=== PATIENT | female | born 1990 | race American Indian/Alaskan Native ===

== ENCOUNTER 2020-08-07 11:54 | Emergency (ER) | payer SELFPAY ==
[2020-08-07 12:10] VITALS: BP 126/66
[2020-08-07] MEDS ORDERED: ACETAMINOPHEN 500 MG TAB PO ONE (13:45)
--- NOTE | 2020-08-07 13:49 | Event Note ---
ED Screening Note Date of service: 08/07/20 Time: 13:44 ED Screening Note: 29-year-old female patient presents to emergency department complaints of fever, chills, myalgias, and abdominal cramps starting yesterday. Patient states symptoms began after receiving her second COVID-19 vaccination. No known sick contacts. No current steroid or antibiotic use. States she is currently on her menstrual cycle. Fever and tachycardia noted in triage. Tylenol ordered. Lactic acid ordered. Decision to pursue further sepsis work-up deferred to additional ED providers. General: Awake, appropriately interactive, no acute distress. Neck: Supple. Full range of motion intact. Cardiovascular: Tachycardic normal peripheral perfusion. Pulmonary: Lungs clear to auscultation. No respiratory distress. Patient is speaking normally without use of accessory muscles. Skin: No apparent rashes or lesions. Neurological: No facial asymmetry. Speech is clear. Follows commands. Patient is alert and oriented. Musculoskeletal: Moves all four extremities spontaneously with normal range of motion. Psych: Cooperative. Appropriate mood and affect. I have greeted and performed a focused rapid initial assessment of this patient. A comprehensive ED assessment and evaluation of the patient, analysis of all test results, and completion of the medical decision-making process will be conducted by additional ED providers. This initial assessment/diagnostic orders/clinical plan/treatment(s) is/are subject to change based on patients health status, clinical progression and re-assessment. Further treatment and workup at subsequent clinical provider's discretion. Patient/guardian urged not to elope from the ED as their condition may be serious if not clinically assessed and managed.
[2020-08-07 14:18] LABS: Bacteria,Urine 1+ /HPF (Negative); Bilirubin,Urine NEG (Negative); Blood,Urine LG (Negative); Color,Urine Yellow (Yellow); Mucus,Urine FEW /HPF; Urobilinogen,Urine < 2.0 mg/dL (<2.0)
[2020-08-07 14:27] LABS: Basophils % (Auto) 0.2 % (0.0-1.8); Eosinophils % (Auto) 0.3 % (0.0-4.3); Hematocrit 42.3 % (30.3-42.9); Hemoglobin 14.3 gm/dl (10.1-14.3); Lymphocytes # (Auto) 0.5 K/mm3 (1.2-5.4); Lymphocytes % (Auto) 6.1 % (13.4-35.0); Mean Corpuscular HGB Conc 34 % (30-34); Mean Corpuscular Volume 97 fl (79-97); Monocytes # (Auto) 0.3 K/mm3 (0.0-0.8); Monocytes % (Auto) 3.6 % (0.0-7.3); Platelet Count 199 K/mm3 (140-440); Red Blood Count 4.37 M/mm3 (3.65-5.03); Red Cell Distribution Width 14.8 % (13.2-15.2)
[2020-08-07 15:29] LABS: Alanine Aminotransferase 9 units/L (7-56); Albumin 4.1 g/dL (3.9-5); BUN/Creatinine Ratio 6; Blood Urea Nitrogen 6 mg/dL (7-17); Calcium 9.5 mg/dL (8.4-10.2); Hemolysis Index 4
[2020-08-07] MEDS ORDERED: SODIUM CHLORIDE 0.9% 1000 ML 1,000 ML IV ONE (16:09)
[2020-08-07] MEDS ORDERED: ACETAMINOPHEN 500 MG TAB ONE (16:10)
--- NOTE | 2020-08-07 16:14 | Emergency Department Report ---
ED General Adult HPI - General Chief complaint: Fever Stated complaint: 2ND COVID VAC COMPLICATIONS Time Seen by Provider: 08/07/20 16:12 Source: patient Mode of arrival: Ambulatory Limitations: No Limitations - History of Present Illness Initial comments: 29-year-old female patient presents to emergency department complaints of fever, chills, myalgias, and abdominal cramps starting yesterday. Patient states symptoms began after receiving her second COVID-19 vaccination. No known sick contacts. No current steroid or antibiotic use. States she is currently on her menstrual cycle. No medications prior to arrival. Denies headache, neck stiffness, rash, shortness of breath, cough, vomiting, diarrhea, abnormal vaginal bleeding, vaginal discharge. Denies all other complaints at this time. Severity scale (0 -10): 9 - Related Data Allergies Allergy/AdvReac Type Severity Reaction Status Date / Time ziprasidone [From Myra] Allergy Unknown Verified 08/07/20 16:16 ED Review of Systems ROS: Stated complaint: 2ND COVID VAC COMPLICATIONS Other details as noted in HPI Other: GENERAL: Positive for subjective fever and chills ENT: Negative for ear pain, difficulty hearing, sore throat, nasal congestion, e pistaxis. CARDIOVASCULAR: Negative for chest pain, palpitations, lower extremity swelling. PULMONARY: Negative for cough, dyspnea, wheezing, orthopnea, cyanosis. GASTROINTESTINAL: Positive for abdominal cramps. MUSCULOSKELETAL: Positive for myalgias. NEUROLOGICAL: Negative for headache, seizure, syncope, paresthesias, weakness. INTEGUMENTARY: Negative for erythema, rash, diaphoresis, laceration, ecchymosis. HEMATOLOGICAL: Negative for hemoptysis, hematemesis, hematochezia, hematuria. PSYCHIATRIC: Negative for hallucinations, suicidal ideation, homicidal ideation, anxiety, depression. ED Past Medical Hx - Past Medical History Previous Medical History?: Yes - Surgical History Additional Surgical History: "aortic ring" ED Physical Exam - General Limitations: No Limitations - Other Other exam information: General: Awake and alert. No acute distress. Head: Atraumatic, normocephalic. Eyes: EOMI. Pupils are equal and round. Normal sclera and conjunctiva. ENT: Oral mucosa is moist. Normal pharyngeal exam. Neck: Supple. No lymphadenopathy. Pulmonary: No respiratory distress. Clear to auscultation bilaterally. Cardiac: Tachycardic. Pulses are palpable and equal bilaterally. No lower extremity cyanosis or edema. Skin: Warm and dry. No rashes. Abdomen: Soft, non-tender, non-protuberant. No guarding, rigidity, or rebound. Bowel sounds are normal. No organomegaly or masses noted. Back: Normal alignment. No CVA tenderness. Extremities: Symmetrical. Full range of motion intact. Neurological: Alert and oriented, appropriately interactive, no focal deficits. Psych: Cooperative. Appropriate mood and affect. Speech is evenly metered. Thoughts are logically construed. ED Course Vital Signs 08/07/20 08/07/20 12:06 17:17 Temperature 100.9 F H Pulse Rate 113 H Respiratory 18 18 Rate Blood Pressure 126/66 [Right] O2 Sat by Pulse 96 Oximetry ED Medical Decision Making - Lab Data Result diagrams: 08/07/20 14:06 08/07/20 14:06 - Medical Decision Making Differential diagnosis including but not limited to: dehydration, electrolyte abnormality, anemia, hypoglycemia, new onset diabetes, rhabdomyolysis, pyelonephritis, urinary tract infection, , sepsis, toxic ingestion, adverse medication effect On reevaluation, patient is stable and symptoms have improved significantly after Tylenol and IV fluids. Tachycardia resolved; repeat heart rate 96 bpm. She is sitting upright and asking for drinks/snacks. test is negative. Patient volunteered that she takes both Depakote and Independence; these levels were tested and found to be within therapeutic ranges labs consistent with mild dehydration; replenished orally and with IV fluids. Patient was febrile and tachycardic on arrival with normal white blood cell count; no clinical evidence to suggest systemic bacterial infection warranting further diagnostic work-up on an emergent basis. Symptoms likely attributable to receiving COVID-19 vaccination less than 24 hours earlier. Patient will be discharged home with instructions for supportive care. Patient expressed understanding and is agreeable to plan of care. Strict return precautions provided. Repeat exam is unremarkable and benign. History, exam, diagnostic testing, and current condition do not suggest worrisome pathology to warrant further testing, continued ED treatment, admission, or surgical evaluation at this point. Given the low probability of a significant medical illness, it would be more likely to result in harm than benefit to perform further testing at this stage. Discussed findings, presumptive diagnosis, need for follow-up and specific signs/symptoms that should prompt immediate return to the emergency department. Instructions were explained in detail to the patient in addition to giving written discharge information. Patient expressed understanding and was given the opportunity to ask questions, all of which were satisfactorily answered prior to discharge home. Critical care attestation.: If time is entered above; I have spent that time in minutes in the direct care of this critically ill patient, excluding procedure time. ED Disposition Clinical Impression: Mild dehydration Disposition: DC-01 TO HOME OR SELFCARE Is pt being admited?: No Does the pt Need Aspirin: No Condition: Stable Instructions: Dehydration, Adult, [id number] Additional Instructions: Take Tylenol every 4 hours and Motrin every 8 hours as needed for pain/fever. Rest. Drink plenty of fluids. Follow-up with your primary care provider this week. Call tomorrow to schedule an appointment. Return to the emergency department immediately for new or worsening symptoms. Referrals: PETRONA AQUINO MD [Staff Physician] - 3-5 Days Time of Disposition: 18:28
== END 2020-08-07 19:00 | disposition home or self-care (01) ==
LOC: ED 11:54
DX: E86.0 Dehydration (principal); Z88.8 Allergy status to other drugs, medicaments and biological substances
CPT/HCPCS: 36415; 80053; 80164; 80178; 81001; 82140; 82550; 83690; 83735; 84703; 85025; 87086; 96360; 96361; 99283; J7030

== ENCOUNTER 2020-09-19 09:30 | Outpatient (CLI) | payer OTHER ==
--- NOTE | 2020-09-19 15:34 | XRay Report ---
CHEST PA AND LATERAL VIEWS INDICATION: UNSPECIFIED,ASTHMA. COMPARISON: None. FINDINGS: Support devices: None. Heart: Within normal limits. Lungs/Pleura: No acute pulmonary or pleural findings. IMPRESSION: 1. No acute findings. Signer Name: Souleymane Gardner MD Signed: 09/19/2020 3:30 PM Workstation Name: [id number]
== END 2020-09-19 09:31 | disposition home or self-care (01) ==
LOC: XRAY 09:30
PROVIDERS: ATTEND Internal Medicine
DX: J45.909 Unspecified asthma, uncomplicated (principal)
CPT/HCPCS: 71046

== ENCOUNTER 2020-11-05 23:48 | Emergency (ER) | payer SELFPAY ==
[2020-11-06 03:54] VITALS: BP 131/82
--- NOTE | 2020-11-06 04:29 | Emergency Department Report ---
ED General Adult HPI - General Chief complaint: Dental/Oral Stated complaint: INFECTION TO MOUTH Source: patient Mode of arrival: Ambulatory Limitations: No Limitations - History of Present Illness Initial comments: Patient is a 29-year-old -Citizen Of [place] female with a history of anxiety and depression as well as bipolar disorder who presents to the ED with complaint of acute onset persistent severe right maxillary premolar molar toothache with swollen painful gingiva for the last 2 days. Patient states that she tried to take [id number] medications for pain Tylenol with no relief. Patient denies dizziness, syncope, headache, chest pain, shortness of breath, traumatic injury, nosebleed, sore throat, fever and chills or nausea and vomiting. MD Complaint: right maxillary gingival swelling; dental abscess -: Sudden, days(s) (2) Location: mouth Radiation: non-radiation Severity scale (0 -10): 7 Quality: aching, sharp Consistency: constant Improves with: none Worsens with: none Associated Symptoms: denies other symptoms. denies: confusion, chest pain, cough, diaphoresis, fever/chills, headaches, loss of appetite, malaise, nausea/vomiting, shortness of breath, syncope, other Treatments Prior to Arrival: none - Related Data Previous Rx's Medication Instructions Recorded Last Taken Type Clindamycin [Clindamycin CAP] 300 mg PO Q8HR #60 capsule 11/06/20 Unknown Rx Diclofenac Sodium 75 mg PO Q8H PRN #30 tablet. 11/06/20 Unknown Rx Allergies Allergy/AdvReac Type Severity Reaction Status Date / Time ziprasidone [From Geodon] Allergy Unknown Verified 08/07/20 16:16 ED Review of Systems ROS: Stated complaint: INFECTION TO MOUTH Other details as noted in HPI Constitutional: denies: chills, fever, malaise Eyes: denies: eye pain, eye discharge, vision change ENT: throat pain (swollen painful right maxillary gingiva and premolar and molar toothache), dental pain (right maxillary gingival pain and swelling). denies: ear pain, hearing loss, congestion Respiratory: denies: cough, shortness of breath, wheezing Cardiovascular: denies: chest pain, palpitations Endocrine: no symptoms reported Gastrointestinal: denies: abdominal pain, nausea, diarrhea Genitourinary: denies: urgency, dysuria, discharge Musculoskeletal: denies: back pain, joint swelling, arthralgia Skin: denies: rash, lesions Neurological: denies: headache, weakness, paresthesias Psychiatric: anxiety. denies: depression Hematological/Lymphatic: denies: easy bleeding, easy bruising ED Past Medical Hx - Surgical History Additional Surgical History: "aortic ring" - Medications Home Medications: Home Medications Medication Instructions Recorded Confirmed Last Taken Type Clindamycin [Clindamycin CAP] 300 mg PO Q8HR #60 capsule 11/06/20 Unknown Rx Diclofenac Sodium 75 mg PO Q8H PRN #30 tablet. 11/06/20 Unknown Rx ED Physical Exam - General Limitations: No Limitations General appearance: alert, in no apparent distress - Head Head exam: Present: atraumatic, normocephalic, normal inspection - Eye Eye exam: Present: normal appearance, PERRL, EOMI Pupils: Present: normal accommodation - ENT ENT exam: Present: mucous membranes moist, TM's normal bilaterally, normal external ear exam, other (Swollen, severely tender right maxillary gingiva with severely tender right maxillary premolar and molar teeth) - Neck Neck exam: Present: normal inspection, full ROM. Absent: lymphadenopathy - Respiratory Respiratory exam: Present: normal lung sounds bilaterally. Absent: respiratory distress, wheezes, rales, stridor, chest wall tenderness, accessory muscle use, prolonged expiratory, other - Cardiovascular Cardiovascular Exam: Present: regular rate, normal rhythm, normal heart sounds. Absent: systolic murmur, diastolic murmur, rubs, gallop - GI/Abdominal GI/Abdominal exam: Present: soft, normal bowel sounds. Absent: tenderness, guarding, rebound, hyperactive bowel sounds, hypoactive bowel sounds, organomegaly - Extremities Exam Extremities exam: Present: normal inspection, full ROM, normal capillary refill - Back Exam Back exam: Present: normal inspection, full ROM. Absent: tenderness, CVA tenderness (R), CVA tenderness (L), muscle spasm, paraspinal tenderness - Neurological Exam Neurological exam: Present: alert, oriented X3, CN II-XII intact, normal gait, reflexes normal - Psychiatric Psychiatric exam: Present: normal affect, normal mood - Skin Skin exam: Present: warm, dry, intact, normal color. Absent: rash ED Course Vital Signs 11/06/20 03:52 Temperature 98.7 F Pulse Rate 68 Respiratory 18 Rate Blood Pressure 131/82 O2 Sat by Pulse 97 Oximetry ED Medical Decision Making - Medical Decision Making This is a 29-year-old -Citizen Of [place] female with a history of anxiety and depression as well as bipolar disorder who presents to the ED with complaint of acute onset persistent severe right maxillary premolar molar toothache with swollen painful gingiva for the last 2 days. Patient states that she tried to take [id number] medications for pain Tylenol with no relief. In the ED, patient is alert and oriented x3 and is not in distress. Patient was discharged home on pain medications and antibiotics and advised to follow-up with her dentist in 7 to 10 days for reevaluation. Patient is advised return to the ED immediately if symptoms get worse. - Differential Diagnosis Dental abscess; gingivitis; dental caries; Critical care attestation.: If time is entered above; I have spent that time in minutes in the direct care of this critically ill patient, excluding procedure time. ED Disposition Clinical Impression: Dental abscess, Acute gingivitis, Dental caries Disposition: TO HOME OR SELFCARE Is pt being admited?: No Does the pt Need Aspirin: No Condition: Stable Instructions: Dental Abscess, [id number], Trench Mouth Additional Instructions: Take medication with food, drink plenty of fluids and follow-up with your dentist in 7 to 10 days for reevaluation. Return to the ED immediately if symptoms get worse. Prescriptions: Clindamycin [Clindamycin CAP] 300 mg PO Q8HR #60 capsule Diclofenac Sodium 75 mg PO Q8H PRN #30 tablet.dr RUELAS Reason: Pain , Severe (7-10) Referrals: [facility] [Outside] - 3-5 Days Forms: Work/School Release Form(ED) Time of Disposition: 04:29 Print Language: DANISH
== END 2020-11-06 05:30 | disposition home or self-care (01) ==
LOC: ED 23:48
DX: K04.7 Periapical abscess without sinus (principal); K05.00 Acute gingivitis, plaque induced; K02.9 Dental caries, unspecified; F31.9 Bipolar disorder, unspecified; Z88.8 Allergy status to other drugs, medicaments and biological substances; Z79.899 Other long term (current) drug therapy
CPT/HCPCS: 99282

== ENCOUNTER 2020-12-12 01:25 | Emergency (ER) | payer SELFPAY ==
[2020-12-12 02:27] VITALS: BP 125/79
[2020-12-12 03:12] LABS: Hematocrit 41.6 % (30.3-42.9); Hemoglobin 14.1 gm/dl (10.1-14.3); Mean Corpuscular HGB Conc 34 % (30-34); Mean Corpuscular Volume 96 fl (79-97); Platelet Count 161 K/mm3 (140-440); Red Blood Count 4.32 M/mm3 (3.65-5.03); Red Cell Distribution Width 14.1 % (13.2-15.2)
[2020-12-12 03:13] LABS: Bilirubin,Urine NEG (Negative); Blood,Urine NEG (Negative); Color,Urine Straw (Yellow); Protein,Urine <15 mg/dL mg/dL (Negative); Urobilinogen,Urine < 2.0 mg/dL (<2.0)
[2020-12-12 03:32] LABS: Alanine Aminotransferase 20 units/L (7-56); Albumin 4.4 g/dL (3.9-5); BUN/Creatinine Ratio 7; Blood Urea Nitrogen 7 mg/dL (7-17); Calcium 9.6 mg/dL (8.4-10.2); Hemolysis Index 13
[2020-12-12] MEDS ORDERED: ONDANSETRON 4 MG/2 ML INJ IV ONE (03:32)
[2020-12-12] MEDS ORDERED: DICYCLOMINE 20 MG/2 ML INJ IM ONE (03:32)
[2020-12-12] MEDS ORDERED: FAMOTIDINE 20 MG/2 ML INJ IV ONE (03:33)
[2020-12-12 04:00] LABS: Total Cells Counted 100
[2020-12-12 04:01] LABS: Giant Platelets Rare; RBC Morphology Normal
--- NOTE | 2020-12-12 04:51 | Cat Scan Report ---
CT ABDOMEN AND PELVIS WITH IV CONTRAST INDICATION: Pt complains oF abdominal pain with N/V/D. COMPARISON: None available. TECHNIQUE: Axial CT images were obtained through the abdomen and pelvis after 100 mL IV contrast. All CT scans a t this location are performed using CT dose reduction for ALARA by means of automated exposure contro l. FINDINGS -- ABDOMEN: Lung Bases: No acute abnormality. Liver: Normal. Gallbladder: Significant pericholecystic edema.. Bile Ducts: Normal. Pancreas: Normal. Spleen: Normal. Adrenals: Normal. Right Kidney and Proximal Ureter: Normal. Left Kidney and Proximal Ureter: Normal. Stomach and Bowel: Mild increased because of thickening and enhancement of the stomach and small ortega l.. Lymph Nodes: No significant adenopathy. Aorta: No significant abnormality. IVC: Normal. Additional Findings: None. FINDINGS -- PELVIS: Urinary Bladder and Distal Ureters: Normal. Reproductive Organs: 2 x 1 cm peripherally enhancing cyst within the left ovary, nonspecific.. Appendix: Normal. Bowel: No acute abnormality. Free Fluid: Small to moderate free pelvic fluid mostly surrounding the uterus and ovaries.. Lymph Nodes: No significant adenopathy. Additional Findings: None. Skeletal System: No acute abnormality. IMPRESSION: 1. Abnormal appearing gallbladder with prominent gallbladder wall thickening. Cholecystitis cannot be excluded. No gallstones are appreciated. 2. Small to moderate free pelvic fluid may be physiologic related. There is a 2 x 1 cm minimally comp jeff cyst arising from the left ovary, nonspecific. 3. Question mild gastroenteritis. Signer Name: Alli Sharp MD Signed: 12/12/2020 4:46 AM Workstation Name: [id number]
--- NOTE | 2020-12-12 06:26 | Emergency Department Report ---
<FABIOLA FLORES - Last Filed: 12/12/20 09:39> ED Abdominal Pain HPI - General Chief Complaint: Abdominal Pain Stated Complaint: DIARRHEA/ABD PAIN - Related Data Previous Rx's Medication Instructions Recorded Last Taken Type Clindamycin [Clindamycin CAP] 300 mg PO Q8HR #60 capsule 11/06/20 Unknown Rx Diclofenac Sodium 75 mg PO Q8H PRN #30 tablet. 11/06/20 Unknown Rx Dicyclomine [Bentyl] 10 mg PO QID #40 capsule 12/12/20 Unknown Rx Ondansetron [Zofran Odt] 4 mg PO Q8HR PRN #15 tab.rapdis 12/12/20 Unknown Rx Allergies Allergy/AdvReac Type Severity Reaction Status Date / Time ziprasidone [From Geodon] Allergy Unknown Verified 08/07/20 16:16 ED Past Medical Hx - Medications Home Medications: Home Medications Medication Instructions Recorded Confirmed Last Taken Type Clindamycin [Clindamycin CAP] 300 mg PO Q8HR #60 capsule 11/06/20 Unknown Rx Diclofenac Sodium 75 mg PO Q8H PRN #30 tablet. 11/06/20 Unknown Rx Dicyclomine [Bentyl] 10 mg PO QID #40 capsule 12/12/20 Unknown Rx Ondansetron [Zofran Odt] 4 mg PO Q8HR PRN #15 tab.rapdis 12/12/20 Unknown Rx ED Medical Decision Making - Lab Data Result diagrams: 12/12/20 02:50 12/12/20 02:50 - Medical Decision Making 0925 ultrasound shows borderline hepatomegaly and a contracted gallbladder but otherwise nothing acute. Went to reeval patient and review results with her, but there was no answer from patient went on name was called. He apparently was also called at 8:16 AM by nursing staff with no answer from patient. 0939: Patient found. She denies any pain, vomiting or diarrhea at this time. She is actually drinking hot chocolate on re-eval. Repeat Abd exam show soft non tender abdomen. She is well appearing, and not toxic and neuro intact. Discussed x-ray discussed all results with patient. Discussed suspected dx and treatment plan with patient. Recommend close f/u with PCP but to return to ED if worse ED Disposition Clinical Impression: Nausea, vomiting and diarrhea, Acute generalized abdominal pain, Viral gastroenteritis, Complex cyst of left ovary Disposition: 01 HOME / SELF CARE / HOMELESS Condition: Stable Instructions: Viral Gastroenteritis, Adult, [id number], Nausea and Vomiting, Adult, [id number]-xb-[id number], Abdominal Pain, Adult, Tnfz-uf-Bbet, Ovarian Cyst, Rmfe-ji-Usxt, Diarrhea, Adult, Ilwl-zx-Lbkl, Abdominal Pain (ED) Additional Instructions: Take the bently and the zofran as prescribed. I recommend doing bland diet today and also lots of fluids. I recommend close follow up with PCP, also recommend follow-up with [facility] for further evaluation of your ovarian cyst. Return to the ER if your symptoms changes or worsens in any way. Prescriptions: Dicyclomine [Bentyl] 10 mg PO QID #40 capsule Ondansetron [Zofran Odt] 4 mg PO Q8HR PRN #15 tab.rapdis PRN Reason: Nausea/vomiting Referrals: PRIMARY CARE, [Primary Care Provider] - 3-5 Days [facility] [Provider Group] - 3-5 Days Forms: Work/School Release Form(ED) Time of Disposition: 09:43 Print Language: [place] <JONAS GONZALES - Last Filed: 12/15/20 06:25> ED Abdominal Pain HPI - General Source: patient Mode of arrival: Ambulatory Limitations: No Limitations - History of Present Illness Initial Comments: Patient is 30-year-old -Russian female with a history of anxiety and depression as well as bipolar disorder presents to the ED with complaint of acute onset persistent nausea, vomiting, diarrhea and diffuse abdominal pain, worse in the right upper quadrant area for the last 3 weeks. Patient states that the pain has been constant, persistent, intermittent, worse with food. Patient also states that diarrhea, nausea and vomiting have been persistent such that she has not been able to keep anything down especially in the last 12 hours. Patient states that with each vomiting episode, the abdominal pain has gotten worse. Patient denies fever, chills, dizziness, syncope, dysuria, urinary frequency and urgency, chest pain, shortness of breath, sore throat, headache, hemoptysis, hematemesis or hematochezia and vaginal bleeding. MD Complaint: abdominal pain, other (Nausea, vomiting and diarrhea) -: Sudden, week(s) (3) Location: periumbilical, RUQ Radiation: RUQ Migration to: no migration Severity: severe Severity scale (0 -10): 8 Quality: cramping, sharp Consistency: intermittent Improves With: nothing Worsens With: eating, vomiting Associated Symptoms: denies other symptoms, nausea, vomiting, diarrhea, anorexia. denies: fever, chills, constipation, dysuria, hematemesis, melena, hematuria, syncope, other - Related Data LMP Date: 12/02/20 ED Review of Systems ROS: Stated complaint: DIARRHEA/ABD PAIN Other details as noted in HPI Constitutional: denies: chills, fever Eyes: denies: eye pain, eye discharge, vision change ENT: denies: ear pain, throat pain Respiratory: denies: cough, shortness of breath, wheezing Cardiovascular: denies: chest pain, palpitations Endocrine: no symptoms reported Gastrointestinal: abdominal pain (Right upper quadrant and periumbilical pain), nausea, vomiting, diarrhea Genitourinary: denies: urgency, dysuria, discharge Musculoskeletal: denies: back pain, joint swelling, arthralgia Skin: denies: rash, lesions Neurological: denies: headache, weakness, paresthesias Psychiatric: denies: anxiety, depression Hematological/Lymphatic: denies: easy bleeding, easy bruising ED Past Medical Hx - Past Medical History Hx Psychiatric Treatment: Yes (Anxiety depression, bipolar, schizophrenia) - Surgical History Past Surgical History?: Yes Additional Surgical History: "aortic ring" - Social History Smoking Status: Current Every Day Smoker Substance Use Type: None ED Physical Exam - General Limitations: No Limitations General appearance: alert, in no apparent distress, anxious - Head Head exam: Present: atraumatic, normocephalic, normal inspection - Eye Eye exam: Present: normal appearance, PERRL, EOMI. Absent: scleral icterus, conjunctival injection Pupils: Present: normal accommodation - ENT ENT exam: Present: normal exam, normal orophraynx, mucous membranes moist, TM's normal bilaterally, normal external ear exam - Neck Neck exam: Present: normal inspection, full ROM - Respiratory Respiratory exam: Present: normal lung sounds bilaterally. Absent: respiratory distress, wheezes, rales, rhonchi, chest wall tenderness, accessory muscle use, decreased breath sounds, prolonged expiratory - Cardiovascular Cardiovascular Exam: Present: regular rate, normal rhythm, normal heart sounds. Absent: systolic murmur, diastolic murmur, rubs, gallop - GI/Abdominal GI/Abdominal exam: Present: soft, tenderness (Palpable right upper quadrant and periumbilical tenderness, no guarding), normal bowel sounds. Absent: guarding, rebound, hyperactive bowel sounds, hypoactive bowel sounds, organomegaly - Bi-manual exam: Present: other (Pelvic exam deferred at this time) - Extremities Exam Extremities exam: Present: normal inspection, full ROM, normal capillary refill - Back Exam Back exam: Present: normal inspection, full ROM. Absent: tenderness, CVA tenderness (R), CVA tenderness (L), muscle spasm, paraspinal tenderness, vertebral tenderness - Neurological Exam Neurological exam: Present: alert, oriented X3, CN II-XII intact, normal gait, reflexes normal - Psychiatric Psychiatric exam: Present: normal affect, normal mood - Skin Skin exam: Present: warm, dry, intact, normal color. Absent: rash ED Course Vital Signs 12/12/20 02:21 Temperature 98.9 F Pulse Rate 66 Respiratory 12 Rate Blood Pressure 125/79 O2 Sat by Pulse 99 Oximetry ED Medical Decision Making - Lab Data Result diagrams: 12/12/20 02:50 12/12/20 02:50 - Radiology Data Radiology results: report reviewed, image reviewed [facility] [address] [place] [address] Cat Scan Report Signed Patient: ROD PLATT MR#: [id number] : 1990 Acct:[id number] Age/Sex: 30 / F ADM Date: 12/12/20 Loc: ED Attending Dr: Ordering Physician: DAMARIS ROLON Date of Service: 12/12/20 Procedure(s): CT abdomen pelvis w con Accession Number(s): [id number] cc: DAMARIS ROLON CT ABDOMEN AND PELVIS WITH IV CONTRAST INDICATION: Pt complains oF abdominal pain with N/V/D. COMPARISON: None available. TECHNIQUE: Axial CT images were obtained through the abdomen and pelvis after 100 mL IV contrast. All CT scans at this location are performed using CT dose reduction for ALARA by means of automated exposure control. FINDINGS -- ABDOMEN: Lung Bases: No acute abnormality. Liver: Normal. Gallbladder: Significant pericholecystic edema.. Bile Ducts: Normal. Pancreas: Normal. Spleen: Normal. Adrenals: Normal. Right Kidney and Proximal Ureter: Normal. Left Kidney and Proximal Ureter: Normal. Stomach and Bowel: Mild increased because of thickening and enhancement of the stomach and small bowel.. Lymph Nodes: No significant adenopathy. Aorta: No significant abnormality. IVC: Normal. Additional Findings: None. FINDINGS -- PELVIS: Urinary Bladder and Distal Ureters: Normal. Reproductive Organs: 2 x 1 cm peripherally enhancing cyst within the left ovary, nonspecific.. Appendix: Normal. Bowel: No acute abnormality. Free Fluid: Small to moderate free pelvic fluid mostly surrounding the uterus and ovaries.. Lymph Nodes: No significant adenopathy. Additional Findings: None. Skeletal System: No acute abnormality. IMPRESSION: 1. Abnormal appearing gallbladder with prominent gallbladder wall thickening. Cholecystitis cannot be excluded. No gallstones are appreciated. 2. Small to moderate free pelvic fluid may be physiologic related. There is a 2 x 1 cm minimally complex cyst arising from the left ovary, nonspecific. 3. Question mild gastroenteritis. Signer Name: Alli Sharp MD Signed: 12/12/2020 4:46 AM Workstation Name: [id number] Transcribed By: BC Dictated By: Alli Sharp MD Electronically Authenticated By: Alli Sharp MD Signed Date/Time: 12/12/20445 DD/ 3 TD/TT: - Medical Decision Making This is 30-year-old -Russian female with a history of anxiety and depression as well as bipolar disorder presents to the ED with complaint of acute onset persistent nausea, vomiting, diarrhea and diffuse abdominal pain, worse in the right upper quadrant area for the last 3 weeks. Patient states that the pain has been constant, persistent, intermittent, worse with food. Patient also states that diarrhea, nausea and vomiting have been persistent such that she has not been able to keep anything down especially in the last 12 hours. Patient states that with each vomiting episode, the abdominal pain has gotten worse. In the ED, patient is alert and oriented x3 and is not in any distress but appears to be in pain. Lab test results were reviewed and showed acute leukocytosis of 12,900. Patient was treated in the ED for pain and also given antiemetics and antacids. Abdomen pelvis CT scan with contrast showed abnormal appearing gallbladder with prominent gallbladder wall thickening. Cholecystitis cannot be excluded. No gallstones are appreciated. It also showed small to moderate free pelvic fluid may be physiologic related. There is a 2 x 1 cm minimally complex cyst arising from the left ovary, nonspecific, and question mild gastroenteritis. Gallbladder ultrasound report is pending. On reevaluation, patient's pain is well controlled medications. Patient has not had any nausea or vomiting and diarrhea while in the ED. Patient care was transferred to Ms. Fabiola Flores PA-C at shift change at 0700 hrs. she shall review all lab test results, all imaging reports and disposition the patient accordingly. - Differential Diagnosis Pancreatitis; cholelithiasis; cholecystitis; appendicitis; gastroenteritis; Critical care attestation.: If time is entered above; I have spent that time in minutes in the direct care of this critically ill patient, excluding procedure time. ED Disposition Is pt being admited?: No Does the pt Need Aspirin: No
--- NOTE | 2020-12-12 08:42 | Ultrasound Report ---
ULTRASOUND ABDOMEN, LIMITED (RIGHT UPPER QUADRANT) INDICATION: ABDOMINAL PAIN: RUQ. COMPARISON: None available. FINDINGS: Pancreas: Visualized portion shows no significant abnormality. Liver: Mildly enlarged at 17 cm craniocaudal.. Gallbladder: Contracted in appearance. Bile ducts: Normal. Common Bile Duct measures 4 mm. Free fluid: None. Additional Findings: None. IMPRESSION: Borderline hepatomegaly. Contracted appearance of the gallbladder. Signer Name: Alli Sharp MD Signed: 12/12/2020 6:03 AM Workstation Name: [id number]
== END 2020-12-12 10:01 | disposition home or self-care (01) ==
LOC: ED 01:25
DX: A08.4 Viral intestinal infection, unspecified (principal); N83.202 Unspecified ovarian cyst, left side; Z79.899 Other long term (current) drug therapy; Z88.8 Allergy status to other drugs, medicaments and biological substances
CPT/HCPCS: 36415; 74177; 76705; 80053; 81001; 84703; 85007; 85025; 96372; 96374; 96375; 99284; Q9967

== ENCOUNTER 2021-06-17 11:09 | Emergency (ER) | payer SELFPAY ==
--- NOTE | 2021-06-17 12:57 | Emergency Department Report ---
Blank Doc - Documentation Documentation: 30-year-old female that presents with nausea, vomiting with right upper abdomi nal pain radiating to right flank as well as pelvic cramping. Patient stated she is currently on her menstrual cycle. 1- This is a initial triage assessment/medical screening only. Full assessment a nd work-up will be completed once the patient is in proper hospital gown, ED bed and in a private room setting. This initial assessment/diagnostic orders/clinical plan/ treatment(s) is/are subject to change based on pt's health status, clinical progression and re-assessment by fellow clinical providers in the ED. Further treatment and workup at subsequent clinical providers discretion. Patient/guardians urged not to elope from ED as their condition may be serious if not clinically assessed and managed. 2-labs 3-Ultrasound 4-UA The patient was evaluated in the emergency department for symptoms described in the history of present illness. He/she was evaluated in the context of the global COVID-19 pandemic, which necessitated consideration that the patient might be at risk for infection with the virus that causes COVID-19. Institutional protocols and algorithms that pertain to the evaluation of patients at risk for COVID-19 are in a state of rapid change based on information released by regulatory bodies including the CDC and federal and state organizations. These policies and algorithms were followed during the patient's care in the emergency department. Please note that these policies, procedures and recommendations changed on a rapid basis.
[2021-06-17 13:29] LABS: Basophils # (Auto) 0.1 K/mm3 (0.0-0.1); Basophils % (Auto) 0.8 % (0.0-1.8); Eosinophils # (Auto) 0.6 K/mm3 (0.0-0.4); Eosinophils % (Auto) 7.3 % (0.0-4.3); Hematocrit 40.2 % (30.3-42.9); Hemoglobin 13.1 gm/dl (10.1-14.3); Lymphocytes # (Auto) 3.7 K/mm3 (1.2-5.4); Mean Corpuscular HGB Conc 33 % (30-34); Mean Corpuscular Volume 98 fl (79-97); Monocytes # (Auto) 0.4 K/mm3 (0.0-0.8); Monocytes % (Auto) 4.7 % (0.0-7.3); Platelet Count 144 K/mm3 (140-440); Red Blood Count 4.09 M/mm3 (3.65-5.03); Red Cell Distribution Width 14.5 % (13.2-15.2)
[2021-06-17 13:43] LABS: Bacteria,Urine 1+ /HPF (Negative); Bilirubin,Urine NEG (Negative); Blood,Urine MOD (Negative); Color,Urine Colorless (Yellow); Protein,Urine <15 mg/dL mg/dL (Negative); Urobilinogen,Urine < 2.0 mg/dL (<2.0)
[2021-06-17 13:48] LABS: Alanine Aminotransferase 6 units/L (7-56); Albumin 4.4 g/dL (3.9-5); BUN/Creatinine Ratio 3; Blood Urea Nitrogen 3 mg/dL (7-17); Calcium 10.1 mg/dL (8.4-10.2); Hemolysis Index 5
[2021-06-17 14:01] LABS: Bilirubin,Direct < 0.2 mg/dL (0-0.2)
[2021-06-17] MEDS ORDERED: KETOROLAC 10 MG TAB PO ONE (15:52)
[2021-06-17] MEDS ORDERED: LIDOCAINE VISCOUS 2% 15 ML ORAL LIQD PO ONE (15:53)
[2021-06-17] MEDS ORDERED: DICYCLOMINE 10 MG/5 ML ORAL LIQD PO ONE (15:53)
[2021-06-17] MEDS ORDERED: ALUM-MAG HYDROXIDE-SIMETHICONE 200-200-20MG/5ML ORAL LIQD 30 ML PO ONE (15:53)
--- NOTE | 2021-06-17 16:14 | Ultrasound Report ---
ULTRASOUND PELVIS INDICATION / CLINICAL INFORMATION: abd/pelvic pain. TECHNIQUE: Transabdominal. Duplex Color Doppler used: Yes. COMPARISON: 12/12/2020 FINDINGS: UTERUS: - Appearance: No significant abnormality. - Size (cm): 9.5 x 3.8 x 5.9 - Endometrial Complex (if present): No significant abnormality.. Thickness in cm (if measured) = 0.3 - Mass or cyst: None. - Additional findings: None. RIGHT ADNEXA: No significant ovarian cyst or mass. Normal color Doppler blood flow. LEFT ADNEXA: No significant ovarian cyst or mass. Normal color Doppler blood flow. URINARY BLADDER: No significant abnormality. FREE FLUID: None. ADDITIONAL FINDINGS: None. IMPRESSION: 1. No significant abnormality. Signer Name: Anthony Altman DO Signed: 06/17/2021 4:10 PM Workstation Name: [id number]
--- NOTE | 2021-06-17 16:15 | Ultrasound Report ---
ULTRASOUND ABDOMEN, LIMITED (RIGHT UPPER QUADRANT) INDICATION / CLINICAL INFORMATION: abd/pelvic pain. COMPARISON: 12/12/2020 FINDINGS: PANCREAS: Visualized portion shows no significant abnormality. LIVER: No significant abnormality. Normal hepatopedal flow within the portal vein. GALLBLADDER: No significant abnormality. BILE DUCTS: No significant abnormality. Common bile duct measures 4 mm. FREE FLUID: None. ADDITIONAL FINDINGS: None. IMPRESSION: 1. No significant sonographic abnormality of the right upper quadrant. Signer Name: Anthony Altman DO Signed: 06/17/2021 4:11 PM Workstation Name: [id number]
--- NOTE | 2021-06-17 17:01 | Emergency Department Report ---
ED Abdominal Pain HPI - General Chief Complaint: Abdominal Pain Stated Complaint: ABD PAIN Time Seen by Provider: 06/17/21 11:32 Source: patient Mode of arrival: Ambulatory Limitations: No Limitations - History of Present Illness Initial Comments: 30 yof with pmh of ovarian cysts presents to ed for evaluation of few week history of abdominal pain with some intermittent nausea and vomiting. She states that pain is a heavy feeling in her epigastric area. She denies fever. MD Complaint: abdominal pain -: Gradual, week(s) (2-3) Location: epigastric Radiation: none Severity: moderate Severity scale (0 -10): 6 Quality: fullness Consistency: intermittent Associated Symptoms: nausea, vomiting. denies: diarrhea, fever, chills, constipation, dysuria, hematemesis, hematochezia, melena, hematuria, syncope - Related Data LMP (females 10-50): last week Previous Rx's Medication Instructions Recorded Last Taken Type Clindamycin [Clindamycin CAP] 300 mg PO Q8HR #60 capsule 11/06/20 Unknown Rx Diclofenac Sodium 75 mg PO Q8H PRN #30 tablet.dr 11/06/20 Unknown Rx Dicyclomine [Bentyl] 10 mg PO QID #40 capsule 12/12/20 Unknown Rx Ondansetron [Zofran Odt] 4 mg PO Q8HR PRN #15 tab.rapdis 12/12/20 Unknown Rx Allergies Allergy/AdvReac Type Severity Reaction Status Date / Time ziprasidone [From Geodon] Allergy Unknown Verified 08/07/20 16:16 ED Review of Systems ROS: Stated complaint: ABD PAIN Other details as noted in HPI Comment: All other systems reviewed and negative Constitutional: denies: chills, fever, malaise, weakness Eyes: denies: eye pain ENT: denies: ear pain Respiratory: denies: cough, shortness of breath Cardiovascular: denies: chest pain, palpitations, dyspnea on exertion, orthopnea, edema, syncope Endocrine: no symptoms reported Gastrointestinal: abdominal pain, nausea, vomiting. denies: diarrhea, hematemesis, melena, hematochezia Genitourinary: denies: urgency, dysuria, frequency, hematuria, discharge Musculoskeletal: denies: back pain Skin: denies: rash, lesions Neurological: denies: headache, weakness, numbness, paresthesias Psychiatric: denies: anxiety Hematological/Lymphatic: denies: easy bleeding, easy bruising ED Past Medical Hx - Past Medical History Previous Medical History?: Yes Hx Psychiatric Treatment: Yes (Anxiety depression, bipolar, schizophrenia) Additional medical history: Abdominal pain - Surgical History Past Surgical History?: Yes Additional Surgical History: "aortic ring" - Social History Smoking Status: Current Every Day Smoker Substance Use Type: None - Medications Home Medications: Home Medications Medication Instructions Recorded Confirmed Last Taken Type Clindamycin [Clindamycin CAP] 300 mg PO Q8HR #60 capsule 11/06/20 Unknown Rx Diclofenac Sodium 75 mg PO Q8H PRN #30 tablet.dr 11/06/20 Unknown Rx Dicyclomine [Bentyl] 10 mg PO QID #40 capsule 12/12/20 Unknown Rx Ondansetron [Zofran Odt] 4 mg PO Q8HR PRN #15 tab.rapdis 12/12/20 Unknown Rx ED Physical Exam - General Limitations: No Limitations General appearance: alert, in no apparent distress - Head Head exam: Present: atraumatic, normocephalic - Eye Eye exam: Present: normal appearance. Absent: conjunctival injection - Neck Neck exam: Present: normal inspection. Absent: tenderness - Respiratory Respiratory exam: Present: normal lung sounds bilaterally. Absent: respiratory distress, wheezes, rales, rhonchi, stridor, chest wall tenderness, accessory muscle use - Cardiovascular Cardiovascular Exam: Present: regular rate, normal heart sounds - GI/Abdominal GI/Abdominal exam: Present: soft, tenderness (epigatric area), normal bowel sounds. Absent: distended, guarding, rebound, rigid - Extremities Exam Extremities exam: Present: normal inspection - Back Exam Back exam: Present: normal inspection. Absent: CVA tenderness (R), CVA tenderness (L) - Neurological Exam Neurological exam: Present: alert, oriented X3 - Psychiatric Psychiatric exam: Present: normal affect, normal mood - Skin Skin exam: Present: warm, dry, intact, normal color ED Course Vital Signs 06/17/21 06/17/21 06/17/21 11:27 16:32 17:23 Temperature 98.6 F 98.2 F Pulse Rate 87 88 Respiratory 20 16 16 Rate Blood Pressure 121/81 131/69 [Right] O2 Sat by Pulse 99 99 Oximetry ED Medical Decision Making - Lab Data Result diagrams: 06/17/21 13:20 06/17/21 13:20 - Radiology Data Radiology results: report reviewed Pelvic US and abdomen US without acute abnormalities. - Medical Decision Making 30 yof with pmh of ovarian cysts presents to ed for evaluation of few week hist ory of abdominal pain with some intermittent nausea and vomiting. She states that pain is a heavy feeling in her epigastric area. She denies fever. Pelvic and abdominal US without acute abnormalities, no gross abnormalities noted to labs, and pain resolved after medications. Patient was advised to take otc pepcid for pain and follow up with pcp for further evaluation. She was advised to return to ED for worsening symptoms. She verbalized understanding of and agreement with plan of care. Critical care attestation.: If time is entered above; I have spent that time in minutes in the direct care of this critically ill patient, excluding procedure time. ED Disposition Clinical Impression: Epigastric pain Disposition: 01 HOME / SELF CARE / HOMELESS Is pt being admited?: No Does the pt Need Aspirin: No Condition: Stable Instructions: Abdominal Pain, Adult, [id number], Gastroesophageal Reflux Disease, Adult, [id number], Abdominal Pain (ED) Additional Instructions: Follow-up with primary care provider for further evaluation. Return to the ER for worsening symptoms. Referrals: PRIMARY MD HERO [Primary Care Provider] - 3-5 Days CONOR SWIFT MD [Referring] - 3-5 Days Time of Disposition: 17:01
[2021-06-17 17:24] VITALS: BP 131/69
== END 2021-06-17 17:24 | disposition home or self-care (01) ==
LOC: ED 11:09
DX: R10.13 Epigastric pain (principal); F17.200 Nicotine dependence, unspecified, uncomplicated; Z88.8 Allergy status to other drugs, medicaments and biological substances
CPT/HCPCS: 36415; 76705; 76856; 80048; 80076; 81001; 83690; 84703; 85025; 99284

== ENCOUNTER 2021-07-20 09:26 | Emergency (ER) | payer SELFPAY ==
[2021-07-20 09:39] VITALS: BP 120/77
--- NOTE | 2021-07-20 11:48 | Emergency Department Report ---
ED ENT HPI - General Chief complaint: Sore Throat Stated complaint: THYROID CYST THROAT CLOSING Time Seen by Provider: 07/20/21 11:13 Source: patient Mode of arrival: Ambulatory Limitations: No Limitations - History of Present Illness Initial comments: 30-year-old black female presents to the emergency department for evaluation of sore throat and congestion for the past 2 to 3 days. States that her throat feels like she is swallowing razor blades and she has congestion and soreness in her face. She states that it also feels like her throat is swollen and irritated. She denies fever, headache, and cough. She denies any sick contacts. MD complaint: sore throat -: Gradual Location: throat Severity: moderate Severity scale (0 -10): 7 Quality: burning, aching Consistency: constant Worsens with: swallowing Associated Symptoms: pain with swallowing, sore throat, rhinorrhea. denies: fever, cough, gum swelling, toothache, tinnitus, hearing loss, discharge from ear - Related Data Previous Rx's Medication Instructions Recorded Last Taken Type Clindamycin [Clindamycin CAP] 300 mg PO Q8HR #60 capsule 11/06/20 Unknown Rx Diclofenac Sodium 75 mg PO Q8H PRN #30 tablet. 11/06/20 Unknown Rx Dicyclomine [Bentyl] 10 mg PO QID #40 capsule 12/12/20 Unknown Rx Ondansetron [Zofran Odt] 4 mg PO Q8HR PRN #15 tab.rapdis 12/12/20 Unknown Rx methylPREDNISolone [Medrol 4MG 4 mg PO DAILY #1 pack 07/20/21 Unknown Rx DOSEPAK (21 tabs)] Allergies Allergy/AdvReac Type Severity Reaction Status Date / Time ziprasidone [From Geodon] Allergy Unknown Verified 08/07/20 16:16 ED Dental HPI - General Chief complaint: Sore Throat Stated complaint: THYROID CYST THROAT CLOSING Time Seen by Provider: 07/20/21 11:13 Source: patient Mode of arrival: Ambulatory Limitations: No Limitations - Related Data Previous Rx's Medication Instructions Recorded Last Taken Type Clindamycin [Clindamycin CAP] 300 mg PO Q8HR #60 capsule 11/06/20 Unknown Rx Diclofenac Sodium 75 mg PO Q8H PRN #30 tablet. 11/06/20 Unknown Rx Dicyclomine [Bentyl] 10 mg PO QID #40 capsule 12/12/20 Unknown Rx Ondansetron [Zofran Odt] 4 mg PO Q8HR PRN #15 tab.rapdis 12/12/20 Unknown Rx methylPREDNISolone [Medrol 4MG 4 mg PO DAILY #1 pack 07/20/21 Unknown Rx DOSEPAK (21 tabs)] Allergies Allergy/AdvReac Type Severity Reaction Status Date / Time ziprasidone [From Geodon] Allergy Unknown Verified 08/07/20 16:16 ED Review of Systems ROS: Stated complaint: THYROID CYST THROAT CLOSING Other details as noted in HPI Comment: All other systems reviewed and negative Constitutional: denies: chills, fever Eyes: denies: eye pain, eye discharge ENT: throat pain, congestion. denies: ear pain, dental pain, hearing loss, epistaxis Respiratory: cough. denies: orthopnea, shortness of breath, SOB with exertion, SOB at rest Cardiovascular: denies: chest pain, palpitations, syncope Gastrointestinal: denies: abdominal pain, nausea, vomiting, hematemesis, melena, hematochezia Genitourinary: denies: urgency, dysuria Musculoskeletal: denies: back pain Neurological: denies: headache, weakness Psychiatric: denies: anxiety, depression, homicidal thoughts, suicidal thoughts ED Past Medical Hx - Past Medical History Hx Psychiatric Treatment: Yes (Anxiety depression, bipolar, schizophrenia) Additional medical history: Abdominal pain - Surgical History Additional Surgical History: "aortic ring" - Social History Smoking Status: Current Every Day Smoker Substance Use Type: None - Medications Home Medications: Home Medications Medication Instructions Recorded Confirmed Last Taken Type Clindamycin [Clindamycin CAP] 300 mg PO Q8HR #60 capsule 11/06/20 Unknown Rx Diclofenac Sodium 75 mg PO Q8H PRN #30 tablet. 11/06/20 Unknown Rx Dicyclomine [Bentyl] 10 mg PO QID #40 capsule 12/12/20 Unknown Rx Ondansetron [Zofran Odt] 4 mg PO Q8HR PRN #15 tab.rapdis 12/12/20 Unknown Rx methylPREDNISolone [Medrol 4MG 4 mg PO DAILY #1 pack 07/20/21 Unknown Rx DOSEPAK (21 tabs)] ED Physical Exam - General Limitations: No Limitations General appearance: alert, in no apparent distress - Head Head exam: Present: atraumatic, normocephalic - Eye Eye exam: Present: normal appearance. Absent: conjunctival injection - ENT ENT exam: Absent: normal exam (Bilateral nasal mucosal edema and turbinate swelling. Tenderness to maxillary and frontal sinus areas.), normal orophraynx (Erythema to posterior oropharynx) - Neck Neck exam: Present: normal inspection, full ROM. Absent: lymphadenopathy - Respiratory Respiratory exam: Present: normal lung sounds bilaterally. Absent: respiratory distress, wheezes, rales, rhonchi, stridor, chest wall tenderness, accessory muscle use - Cardiovascular Cardiovascular Exam: Present: regular rate, normal heart sounds - GI/Abdominal GI/Abdominal exam: Present: soft. Absent: distended, tenderness, guarding, rebound, rigid, normal bowel sounds - Extremities Exam Extremities exam: Present: normal inspection. Absent: normal capillary refill, pedal edema, joint swelling, calf tenderness - Back Exam Back exam: Present: normal inspection - Neurological Exam Neurological exam: Present: alert, oriented X3, normal gait, reflexes normal - Psychiatric Psychiatric exam: Present: normal affect, normal mood - Skin Skin exam: Present: warm, dry, intact, normal color ED Course Vital Signs 07/20/21 09:34 Temperature 98.2 F Pulse Rate 92 H Respiratory 92 H Rate Blood Pressure 120/77 [Right] O2 Sat by Pulse 100 Oximetry ED Medical Decision Making - Medical Decision Making 30-year-old black female presents to the emergency department for evaluation of sore throat and congestion for the past 2 to 3 days. States that her throat feels like she is swallowing razor blades and she has congestion and soreness in her face. She states that it also feels like her throat is swollen and irritated. She denies fever, headache, and cough. She denies any sick contacts. Exam consistent with sinusitis. No acute distress noted. Patient will be treated with Medrol Dosepak and advised to take [id number] sinus medication. She is advised to drink plenty of noncaffeinated fluids and follow- up with her primary care provider if no improvement or worsening symptoms. She verbalized understanding of and agreement with plan of care. Critical care attestation.: If time is entered above; I have spent that time in minutes in the direct care of this critically ill patient, excluding procedure time. ED Disposition Clinical Impression: Sinusitis Qualifiers: Sinusitis location: frontal Chronicity: acute Recurrence: non-recurrent Qualified Code(s): J01.10 - Acute frontal sinusitis, unspecified Disposition: 01 HOME / SELF CARE / HOMELESS Is pt being admited?: No Does the pt Need Aspirin: No Condition: Stable Instructions: Sinusitis, Adult, [id number] Additional Instructions: Take medications as prescribed. Follow-up with primary care provider if no improvement or worsening symptoms. Prescriptions: methylPREDNISolone [Medrol 4MG DOSEPAK (21 tabs)] 4 mg PO DAILY #1 pack Referrals: DENIA TAPIA MD [Referring] - 3-5 Days Time of Disposition: 11:47
== END 2021-07-20 12:03 | disposition home or self-care (01) ==
LOC: ED 09:26
DX: J32.9 Chronic sinusitis, unspecified (principal); F41.9 Anxiety disorder, unspecified; F31.9 Bipolar disorder, unspecified; F17.200 Nicotine dependence, unspecified, uncomplicated; Z88.8 Allergy status to other drugs, medicaments and biological substances; Z79.899 Other long term (current) drug therapy
CPT/HCPCS: 99282

== ENCOUNTER 2021-11-18 14:27 | Emergency (ER) | payer MEDICAID ==
[2021-11-18 14:55] VITALS: BP 123/61
[2021-11-18 15:46] LABS: Hematocrit 36.7 % (30.3-42.9); Mean Corpuscular HGB Conc 33 % (30-34); Mean Corpuscular Volume 96 fl (79-97); Platelet Count 178 K/mm3 (140-440); Red Blood Count 3.82 M/mm3 (3.65-5.03); Red Cell Distribution Width 13.3 % (13.2-15.2)
[2021-11-18 16:01] LABS: BUN/Creatinine Ratio 4; Blood Urea Nitrogen 3 mg/dL (7-17); Calcium 9.4 mg/dL (8.4-10.2); Hemolysis Index 10
[2021-11-18 16:33] LABS: Band Neutrophils # (Manual) 0.3 K/mm3; Total Cells Counted 100
[2021-11-18 16:34] LABS: Basophils % (Manual) 0 % (0.0-1.8); Large Platelets Few; Platelet Estimate Consistent w Auto; RBC Morphology Normal
--- NOTE | 2021-11-18 20:46 | Emergency Department Report ---
ED General Adult HPI - General Chief complaint: Pain General Stated complaint: CYST/PAIN Time Seen by Provider: 11/18/21 19:36 Source: patient Mode of arrival: Ambulatory Limitations: No Limitations - History of Present Illness Initial comments: 30-year-old female with a history of bipolar, presents with pain in her throat. Patient reports that she has been feeling like her throat is swollen, difficulty swallowing, with subjective cough that has been going on for 1 week. 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 She has since not followed up states symptoms are worse at [facility], sometimes she wakes up feeling like she is choking, states she feels like there is a lump or mass in her throat, roommates have been feeling it in the also see the same thing. She denies weakness or headache, no hemoptysis, no vomiting, she has been eating and drinking appropriately, no fever chills no cough cold congestion, no headache dizziness or vision changes. She denies being last menstrual period was about a week ago, she denies history of GERD or reflux -: week(s) Radiation: non-radiation Consistency: intermittent Improves with: none Worsens with: none Associated Symptoms: cough Treatments Prior to Arrival: none - Related Data Previous Rx's Medication Instructions Recorded Last Taken Type Clindamycin [Clindamycin CAP] 300 mg PO Q8HR #60 capsule 11/06/20 Unknown Rx Diclofenac Sodium 75 mg PO Q8H PRN #30 tablet. 11/06/20 Unknown Rx Dicyclomine [Bentyl] 10 mg PO QID #40 capsule 12/12/20 Unknown Rx Ondansetron [Zofran Odt] 4 mg PO Q8HR PRN #15 tab.rapdis 12/12/20 Unknown Rx methylPREDNISolone [Medrol 4MG 4 mg PO DAILY #1 pack 07/20/21 Unknown Rx DOSEPAK (21 tabs)] Ibuprofen/Famotidine 1 each PO TID PRN #21 11/18/21 Unknown Rx [Ibuprofen-Famotidin 800-26.6MG] Allergies Allergy/AdvReac Type Severity Reaction Status Date / Time ziprasidone [From Geodon] Allergy Unknown Verified 08/07/20 16:16 ED Review of Systems ROS: Stated complaint: CYST/PAIN Other details as noted in HPI Constitutional: denies: chills, diaphoresis, fever Eyes: denies: eye pain ENT: throat pain. denies: hearing loss, epistaxis, congestion Respiratory: denies: orthopnea, shortness of breath, SOB with exertion, SOB at rest Cardiovascular: denies: chest pain Endocrine: denies: excessive sweating, intolerance to cold, intolerance to heat Gastrointestinal: denies: abdominal pain, nausea, vomiting Genitourinary: denies: urgency, dysuria Skin: denies: rash Neurological: denies: headache, weakness Psychiatric: anxiety ED Past Medical Hx - Past Medical History Previous Medical History?: Yes Hx Psychiatric Treatment: Yes (Anxiety depression, bipolar, schizophrenia) Additional medical history: Abdominal pain - Surgical History Past Surgical History?: Yes Additional Surgical History: "aortic ring" - Social History Smoking Status: Current Every Day Smoker Substance Use Type: None - Medications Home Medications: Home Medications Medication Instructions Recorded Confirmed Last Taken Type Clindamycin [Clindamycin CAP] 300 mg PO Q8HR #60 capsule 11/06/20 Unknown Rx Diclofenac Sodium 75 mg PO Q8H PRN #30 tablet.dr 11/06/20 Unknown Rx Dicyclomine [Bentyl] 10 mg PO QID #40 capsule 12/12/20 Unknown Rx Ondansetron [Zofran Odt] 4 mg PO Q8HR PRN #15 tab.rapdis 12/12/20 Unknown Rx methylPREDNISolone [Medrol 4MG 4 mg PO DAILY #1 pack 07/20/21 Unknown Rx DOSEPAK (21 tabs)] Ibuprofen/Famotidine 1 each PO TID PRN #21 11/18/21 Unknown Rx [Ibuprofen-Famotidin 800-26.6MG] ED Physical Exam - General Limitations: No Limitations General appearance: alert, in no apparent distress, other (Well-appearing pleasant female overly talkative) - Head Head exam: Present: atraumatic - Eye Eye exam: Present: normal appearance Pupils: Present: normal accommodation - ENT ENT exam: Present: normal exam, normal orophraynx, mucous membranes moist, TM's normal bilaterally - Neck Neck exam: Present: normal inspection, full ROM, other (I do not feel any palpable masses cyst, no obvious swelling). Absent: tenderness, lymphadenopathy - Respiratory Respiratory exam: Present: normal lung sounds bilaterally. Absent: respiratory distress, wheezes - Cardiovascular Cardiovascular Exam: Present: regular rate, normal rhythm - GI/Abdominal GI/Abdominal exam: Present: soft, normal bowel sounds. Absent: distended, hyperactive bowel sounds - Extremities Exam Extremities exam: Present: normal inspection, full ROM, normal capillary refill. Absent: tenderness, pedal edema, joint swelling - Neurological Exam Neurological exam: Present: alert, oriented X3, CN II-XII intact, normal gait - Psychiatric Psychiatric exam: Present: normal affect, normal mood ED Course Vital Signs 11/18/21 14:50 Temperature 99.2 F Pulse Rate 85 Respiratory 16 Rate Blood Pressure 123/61 [Left] O2 Sat by Pulse 97 Oximetry ED Medical Decision Making - Lab Data Result diagrams: 11/18/21 15:13 11/18/21 15:13 - Medical Decision Making 30-year-old female with a history of bipolar, presents with pain in her throat. Patient reports that she has been feeling like her throat is swollen, difficulty swallowing, with subjective cough that has been going on for 1 week. 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 She has since not followed up states [facility], sometimes she wakes up feeling like she is choking, states she feels like there is a lump or mass in her throat, roommates have been feeling it in the also see the same thing. She denies weakness or headache, no hemoptysis, no vomiting, she has been eating and drinking appropriately, no fever chills no cough cold congestion, no headache dizziness or vision changes. She denies being last menstrual period was about a week ago, she denies history of GERD or reflux Patient has been able to drink and eat crackers and juice, she is afebrile, nontoxic-appearing, no obvious airway occlusion, no signs of any tonsillitis or pharyngitis, will treat with supportive therapy, and referral for further evaluation. Patient remained stable nontoxic-appearing, afebrile, ambulating steadily without assistance. Gone over ED findings with patient as well as plan for follow-up. Also discussed return precautions with patient, all questions and concerns addressed. Patient is stable to be discharged follow-up outpatient. Audio voice dictation device used, hence the chart might contain some dictation errors, mispronunciations, wrong spelling and wrong verbiage. Critical care attestation.: If time is entered above; I have spent that time in minutes in the direct care of this critically ill patient, excluding procedure time. ED Disposition Clinical Impression: Globus sensation Disposition: 01 HOME / SELF CARE / HOMELESS Is pt being admited?: No Does the pt Need Aspirin: No Condition: Stable Instructions: Globus Pharyngeus Prescriptions: Ibuprofen/Famotidine [Ibuprofen-Famotidin 800-26.6MG] 1 each PO TID PRN #21 PRN Reason: Pain , Severe (7-10) Referrals: [facility] [Provider Group] - 3-5 Days
== END 2021-11-18 21:27 | disposition home or self-care (01) ==
LOC: ED 14:27
DX: T17.208A Unspecified foreign body in pharynx causing other injury, initial encounter (principal); F41.9 Anxiety disorder, unspecified; Z91.09 Other allergy status, other than to drugs and biological substances; Z79.899 Other long term (current) drug therapy; X58.XXXA Exposure to other specified factors, initial encounter; Y93.89 Activity, other specified; Y92.89 Other specified places as the place of occurrence of the external cause; Y99.8 Other external cause status
CPT/HCPCS: 36415; 80048; 84702; 85007; 85025; 99283